=== PATIENT | female | born 1975 | race Two or more races ===

== ENCOUNTER 2023-03-06 12:43 | Emergency (ER) | payer OTHER ==
[2023-03-06 13:00] VITALS: BMI 34.9
[2023-03-06] MEDS ORDERED: ONDANSETRON *ODT* 4 MG TABLET SL ONE (14:30)
[2023-03-06] MEDS ORDERED: ONDANSETRON *ODT* 4 MG TABLET ONE (15:47)
[2023-03-06 17:51] VITALS: BP 139/84; PULSE 82; RESP 16; TEMP 98.6
== END 2023-03-06 18:00 | disposition home or self-care (01) ==
LOC: JER 12:43
DX: R11.0 Nausea (principal); R51.9 Headache, unspecified; M54.2 Cervicalgia; W18.2XXA Fall in (into) shower or empty bathtub, initial encounter
CPT/HCPCS: 70450-TC; 72125-TC; 99284-25; Q0162